=== PATIENT | female | born 1980 | race Caucasian/White ===

== ENCOUNTER 2019-05-31 15:32 | Emergency (ER) | payer SELFPAY ==
[2019-05-31 15:42] VITALS: PULSE 92; RESP 20; TEMP 36.6; O2SAT 99; BMI 32.5
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
--- NOTE | 2019-05-31 16:27 | XR_ITS ---
WS: [id number] WRIST LEFT TECHNIQUE: 3 views of the left wrist CLINICAL INFORMATION: left wrist pain COMPARISON: None. FINDINGS: Normal radiocarpal joint. Scaphoid is normal in appearance. No evidence of radiocarpal dislocation. D istal radius and ulna are normal in appearance. XR/XR wrist LT min 3V* [id number] IMPRESSION: Normal left wrist.
[2019-05-31 17:39] LABS: C Reactive Protein 4.7 mg/L (0.0-4.9); Uric Acid 6.2 mg/dL (2.4-5.7)
[2019-05-31] MEDS: dexamethasone 10 mg/mL INJ IM (17:47)
[2019-05-31] MEDS: ketorolac 30 mg/mL INJ IM (17:48)
--- NOTE | 2019-05-31 17:52 | PC.NURSE ---
Patient presents to ED with swelling and pain to left arm since waking up this morning. Patient denies any injury, cause is unknown.
== END 2019-05-31 18:48 | disposition home or self-care (01) ==
PROVIDERS: Emergency Provider Physician Assistant; Family Provider Family Medicine; PCP Internal Medicine
DX: M19.032 Primary osteoarthritis, left wrist (principal); M10.432 Other secondary gout, left wrist; F17.210 Nicotine dependence, cigarettes, uncomplicated
CPT/HCPCS: 36415; 73110; 84550; 86140; 96372; 99281; J1100; J1885

== ENCOUNTER 2020-06-16 16:27 | Inpatient (IN) | payer SELFPAY ==
[2020-06-16 16:37] VITALS: BP 129/70; PULSE 97; RESP 18; TEMP 37; O2SAT 100; BMI 32.9
[2020-06-16] MEDS: OLANZapine 10 mg VIAL IM (17:34)
[2020-06-16 17:43] LABS: Basophils # 0.1 10^3/uL (0.0-0.1); Basophils % 0.3 %; Hematocrit 42.6 % (37.0-47.0); Hemoglobin 14.1 g/dL (11.5-15.3); Lymphocytes # 4.9 10^3/uL (0.8-4.8); Lymphocytes % 17.3 %; Mean Corpuscular HGB Conc 33.1 g/dL (30.0-36.0); Mean Corpuscular Hemoglobin 31.5 pg (28.0-34.0); Mean Corpuscular Volume 95.1 fL (81-99); Mean Platelet Volume 10.2 fL (7.4-10.4); Monocytes # 1.6 10^3/uL (0.2-0.9); Monocytes % 5.8 %; Neutrophils # 21.48 10^3/uL (1.8-7.7); Neutrophils % 76.1 %; Nucleated Red Blood Cells % 0 %; Platelet Count 399 10^3/cmm (130-400); Red Blood Count 4.48 10^6/uL (4.1-5.3); Red Cell Distribution Width 12.8 % (12.1-15.1); White Blood Count 28.3 10^3/uL (4.0-10.0)
--- NOTE | 2020-06-16 17:46 | XRR_ITS ---
PROCEDURE INFORMATION: Exam: XR Chest, 1 View Exam date and time: 06/16/2020 6:19 PM Age: 40 years old Clinical indication: Other: Leucocytosis TECHNIQUE: Imaging protocol: XR of the chest Views: 1 view. Total images: 1 COMPARISON: CR Chest 1 [place] [id number] 08/10/2018 7:36 PM FINDINGS: Lungs: Unremarkable. No consolidation. Pleural spaces: Unremarkable. No pleural effusion. No pneumothorax. Heart/Mediastinum: Unremarkable. No cardiomegaly. Bones/joints: Unremarkable. XR/XR chest 1V portable [id number] IMPRESSION: No acute findings.
[2020-06-16 18:06] LABS: HCG Qualitative Urine. Negative (Negative)
[2020-06-16 18:08] LABS: Alanine Aminotransferase 25 U/L (0-33); Albumin Level 4.5 g/dL (3.5-5.2); Alkaline Phosphatase 70 IU/L (35-105); Aspartate Amino Transferase 48 U/L (0-32); Blood Urea Nitrogen 28 mg/dL (6-20); Calcium 8.2 mg/dL (8.5-10.5); Carbon Dioxide 23 mmol/L (22-29); Chloride 94 mmol/L (98-107); Globulin 3.2 g/dL (1.3-4.6); Glomerular Filtration Rate 33.1 mL/min (90-130); Glucose 140 mg/dL (65-115); Osmolality Calculated 292 mOsm/kg (285-295); Sodium 137 mmol/L (136-145); Total Bilirubin 0.5 mg/dL (0.15-1.2); Total Protein 7.7 g/dL (6.6-8.7)
[2020-06-16 18:10] LABS: Acetaminophen < 5.0 ug/mL (10-30); Alcohol Level < 10 mg/dL (0-10); Salicylate < 0.3 mg/dL (3-10)
--- NOTE | 2020-06-16 18:31 | PC.NURSE ---
rounded on pt after med administration-no change in pt's erratic behavior. she continues to talk loudly to herself. ed physician notified.
--- NOTE | 2020-06-16 18:39 | PC.NURSE ---
pt given food and fluids. pt behavior is still erratic but she is more directable at this time. er physician notified.
[2020-06-16 19:36] LABS: Specific Gravity, Urine 1.025 (1.005-1.030); Urine Appearance Clear (CLEAR); Urine Color Yellow (Yellow); pH Urine 5 (5-7)
[2020-06-16 19:37] LABS: Add Urine Microscopic? YES; Bilirubin Urine 1+ (Negative); Blood Urine Neg (Negative); Glucose Urine UA Norm (Normal); Ketones Urine 1+ (Negative); Leukocyte Esterase Urine Negative (Negative); Nitrate Urine Negative (Negative); Protein Urine Trace (Negative); Urobilinogen Urine 4 mg/dL (Negative)
[2020-06-16 19:38] LABS: Amorphous Sediment Urine 1+ /hpf; Hyaline Casts Urine 0-4 /lpf
[2020-06-16 19:39] LABS: Add Urine Culture? Yes; Bacteria Urine 2+ /hpf; RBC Urine 0-4 /hpf (0-2); Squamous Epithelial Cell Urine 0-4 /hpf (0-5)
[2020-06-16 19:40] LABS: Amphetamines Screen Urine Positive (Negative); Barbiturates Screen Urine Negative (Negative); Benzodiazepines Screen Urine Negative (Negative); Cocaine Screen Urine Negative (Negative); Opiate Screen Urine Negative (Negative); PCP Screen Urine Negative (Negative); THC Screen Urine Positive (Negative)
[2020-06-16] MEDS: LORazepam 2 mg/mL INJ 1 mL IM (19:48)
--- NOTE | 2020-06-16 20:31 | PC.NURSE ---
Patient was acting Erratic toward PSA and staff, yelling at staff and incoherently down hallway with other patient within close proximity. Patient was trying to leave patient room while only donning a patient gown and exposing privates in hallway. Per ED physician order was placed for 100mg Ketamine IM injection.
[2020-06-16 22:00] VITALS: BP 130/72; PULSE 95; RESP 20; TEMP 37
--- NOTE | 2020-06-16 22:14 | PC.NURSE ---
Report called to Valery EDWARDS on NPU unit at 1631
[2020-06-16] MEDS: potassium chloride ER 20 mEq Tablet 40 MEQ PO (22:37)
[2020-06-16] MEDS: amoxicillin-clav 500-125 mg Tablet 1 TAB PO (22:37)
[2020-06-16 22:41] VITALS: BP 130/72; PULSE 95; RESP 20; O2SAT 94
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
--- NOTE | 2020-06-17 04:29 | PC.NURSE ---
UTI/low K+ Pt does have a UTI, antibiotics are in med cart. Pt potassium is 3.0. Pt received 40mEq po in the ED.
[2020-06-17 06:00] VITALS: RESP 17
[2020-06-17] MEDS: amoxicillin-clav 500-125 mg Tablet 1 TAB PO ×2 (10:45→17:24)
[2020-06-17] MEDS: fixodent 39 gm Tube 1 APPLIC DENTAL (11:16)
[2020-06-17] MEDS: nicotine 21 mg Patch 1 PATCH TRANSDERMA (11:21)
[2020-06-17 13:48] VITALS: BP 100/53; PULSE 73; RESP 18; TEMP 37
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
[2020-06-17 20:40] VITALS: BP 112/70; PULSE 67; RESP 18; TEMP 36.8; O2SAT 94
[2020-06-17] MEDS: acetaminophen 325 mg Tablet 650 MG PO (20:45)
[2020-06-17] MEDS: hyDROXYzine 25 mg Capsule 50 MG PO (20:45)
[2020-06-17] MEDS: trazodone 50 mg Tablet PO (20:45)
[2020-06-17] MEDS: nicotine 2 mg Gum BUCCAL (20:45)
--- NOTE | 2020-06-17 20:48 | PC.NURSE ---
nicotine patch removed
[2020-06-18 06:00] VITALS: BP 90/50; PULSE 77; RESP 16; TEMP 36.8; O2SAT 98; BMI 32.9
--- NOTE | 2020-06-18 06:16 | PC.NURSE ---
TRAZODONE/VISTERIL/ @ 2100 PT RECEIVED TRAZODONE 50MG PO, VISTERIL 50MG PO, TYLENOL 650MG PO GIVEN FOR INSOMNIA, ANXIETY, result sleep, reduction of anxiety, @2215..result, pt slept and experienced less anxiety, and reduction of pain to lesser degree.
[2020-06-18] MEDS: amoxicillin-clav 500-125 mg Tablet 1 TAB PO ×2 (09:20→17:14)
[2020-06-18] MEDS: cetylpyridinium Lozenge 1 EACH MUCOUS MEM (10:59)
--- NOTE | 2020-06-18 11:57 | P.PN_ITS ---
Subjective NPU Subjective: Interval history: Yessi and I had a fairly contentious conversation. She was very reluctant to acknowledge her methamphetamine use. She then tried to save visits it was forced upon her, then she changes her story to there was someone in town and she just used a little bit. She very much downplays the role of addiction in her circumstance and spent most of the time t alking about how bad her family is end of the answer is just getting further away from here versus addressing her mental health and addiction issues. She was resistant to discuss any medications. Mental Status Exam MSE Comments: This is an obese white female with hospital scrubs on with limited dress grooming and eye contact. No abnormal movements except for psychomotor retardation. Semicooperative with exam mild/moderate distress. Speech was mostly decreased rate and volume. Mood described as anxious but tired, affect annoyed. Thought process organized. Thought content: Patient denied suicidal or homicidal ideation, she endorsed paranoia and paranoia was noted, she denied any auditory or visual hallucinations. Attention and concentration were limited and memory was unreliable but none were formally tested. She is alert and oriented times 3. Insight and judgment are impaired and impulse control is impaired. Vitals/I&O/Wt Last Vital Signs Temp 98.3 F 06/18/20 06:00 Pulse 77 06/18/20 06:00 Resp 16 06/18/20 06:00 BP 90/50 06/18/20 06:00 Pulse Ox 98 06/18/20 06:00 Weight last 48 hrs Weight 81.647 kg Weight 81.647 kg Data NPU : 06/16/20 17:30 06/16/20 17:30 Micro: Microbiology 06/16/20 17:57 Urine Culture - Preliminary Urine,Clean Catch Gram Negative Rods Microbiology 06/16/20 17:57 Urine,Clean Catch Urine Culture - Preliminary Gram Negative Rods A&P Additional A&P Information (1) Methamphetamine abuse: (2) Cannabis abuse: (3) Substance or medication-induced psychotic disorder: (4) UTI (urinary tract infection): (5) Acute hypokalemia: (6) Leucocytosis: Additional A&P Information This is a 40-year-old white female with a long history of trauma and presents denying active addiction but with positive UDS and behavior consistent with psychosis likely substance induced who presents resistant to being hospitalized on a 96-hour hold. 1. Continue current medication. We will continue to offer medication to assist with her thought disorder. 2. Continue every 15 minute checks for safety. 3. Encourage individual, group and milieu therapies. 4. Encourage sober living treatment after discharge at the highest level of care to which she is willing to commit. Involuntary Hold Information 96 Hour Hold: 96 Hour Involuntary Admission: No Attestations NPU Medical Necessity Statement*: Inpatient hospitalization is medically necessary and the clinically appropriate intervention at this time. We will monitor medications and make changes as indicated. Patient will be in the hospital for over two midnights. Likely length of stay 2-4 days. Coding Level of Care Code Acute Material Handler Floorperson for Nicole Gilbert
[2020-06-18 13:53] VITALS: BP 143/86; PULSE 98; RESP 18; TEMP 36.9
[2020-06-18 19:52] VITALS: BP 107/59; PULSE 62; RESP 18; TEMP 36.4; O2SAT 91
[2020-06-18] MEDS: hyDROXYzine 25 mg Capsule 50 MG PO (20:16)
[2020-06-18] MEDS: trazodone 50 mg Tablet PO (20:17)
[2020-06-19 06:00] VITALS: BP 110/71; PULSE 65; RESP 15; TEMP 36.7; O2SAT 90
[2020-06-19] MEDS: amoxicillin-clav 500-125 mg Tablet 1 TAB PO ×2 (08:52→20:34)
--- NOTE | 2020-06-19 13:39 | PM.NPN ---
Subjective NPU Subjective: Interval history: Yessi continues to show slow improvement and near resolution of her psychosis. That is now been replaced with resentment for being in the hospital and little to no insight or responsibility related to her drug use and its impact on her being here. She continues to focus on her family, her mother, emergency rooms decisions and not at all on her own decisions. She continues to deny any desire to start any medication. Mental Status Exam MSE Comments: This is an obese white female with hospital scrubs on with limited dress grooming and eye contact. No abnormal movements except for psychomotor retardation. Semicooperative with exam mild distress. Speech was mostly decreased rate and volume. Mood described as fine, affect annoyed. Thought process organized. Thought content: Patient denied suicidal or homicidal ideation, she endorsed paranoia and paranoia was noted, she denied any auditory or visual hallucinations. Attention and concentration were intact and memory was more reliable but none were formally tested. She is alert and oriented times 3. Insight and judgment are limited and impulse control is impaired. Vitals/I&O/Wt Last Vital Signs Temp 98.0 F 06/19/20 06:00 Pulse 65 06/19/20 06:00 Resp 15 06/19/20 06:00 BP 110/71 06/19/20 06:00 Pulse Ox 90 06/19/20 06:00 Weight last 48 hrs Weight 81.647 kg Data NPU : 06/16/20 17:30 06/16/20 17:30 Micro: Microbiology 06/16/20 17:57 Urine Culture - Final Urine,Clean Catch Escherichia coli Microbiology 06/16/20 17:57 Urine,Clean Catch Urine Culture - Final Escherichia coli A&P Additional A&P Information (1) Methamphetamine abuse: (2) Cannabis abuse: (3) Substance or medication-induced psychotic disorder: (4) UTI (urinary tract infection): (5) Acute hypokalemia: (6) Leucocytosis: Additional A&P Information This is a 40-year-old white female with a long history of trauma and presents denying active addiction but with positive UDS and behavior consistent with psychosis likely substance induced who presents resistant to being hospitalized on a 96-hour hold. 1. Continue current medication. We will continue to offer medication to assist with her thought disorder. 2. Continue every 15 minute checks for safety. 3. Encourage individual, group and milieu therapies. 4. Encourage sober living treatment after discharge at the highest level of care to which she is willing to commit. Involuntary Hold Information 96 Hour Hold: 96 Hour Involuntary Admission: No Attestations NPU Medical Necessity Statement*: Inpatient hospitalization is medically necessary and the clinically appropriate intervention at this time. We will monitor medications and make changes as indicated. Likely length of stay 1-3 days. Coding Level of Care Code Acute Statistical Programmer Analyst for Nicole Gilbert
[2020-06-19 14:00] VITALS: BP 123/79; PULSE 66; RESP 18; TEMP 36.8; O2SAT 98
--- NOTE | 2020-06-19 17:13 | PC.RESP ---
Smoking Cessation information sent to patient.
[2020-06-19 20:37] VITALS: BP 67/49; PULSE 97; RESP 18; TEMP 36.9; O2SAT 98
--- NOTE | 2020-06-19 21:32 | PC.NURSE ---
PM assessment Pt denies AH/VH, DENIES PAIN, DENIES SI/HI. BP WAS LOW THIS EVENING 67/49, TAKEN MANUALLY 72/46. PT DID NOT EAT SNACK, CHANGED PT ROOM, AND PT WANTS TO REST.
[2020-06-20 06:00] VITALS: BP 120/73; PULSE 51; RESP 16; TEMP 36.6; O2SAT 91
[2020-06-20] MEDS: amoxicillin-clav 500-125 mg Tablet 1 TAB PO (09:03)
[2020-06-20 10:25] VITALS: BP 120/73; PULSE 51; RESP 16; TEMP 36.6; O2SAT 91
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
== END 2020-06-20 13:56 | disposition home or self-care (01) | DRG 897 ==
LOC: ER 16:47 → NP 21:40
PROVIDERS: Admitting Provider Psychiatry & Neurology Psychiatry; Emergency Provider Family Medicine; Visit Provider Psychiatry & Neurology Psychiatry
DX: F15.159 Other stimulant abuse with stimulant-induced psychotic disorder, unspecified (principal); N30.00 Acute cystitis without hematuria; R45.851 Suicidal ideations; F15.10 Other stimulant abuse, uncomplicated; F12.10 Cannabis abuse, uncomplicated; E87.6 Hypokalemia
CPT/HCPCS: 12345; 36415; 71045; 80053; 80306; 80307; 81001; 81025; 85025; 87077; 87086; 87186; 96372; 99284; 99292; J2060; J3490

== ENCOUNTER → 2021-04-17 15:03 | Outpatient (BNVA) | payer MEDICAID, SELFPAY | PROVIDERS: Visit Provider Obstetrics & Gynecology | DX: Z12.4 Encounter for screening for malignant neoplasm of cervix (principal); Z12.39 Encounter for other screening for malignant neoplasm of breast | CPT/HCPCS: 87624 ==

== ENCOUNTER → 2021-10-16 18:21 | Outpatient (BNVA) | payer MEDICAID, SELFPAY | PROVIDERS: Visit Provider Family Medicine Adult Medicine | DX: N39.0 Urinary tract infection, site not specified (principal); J40 Bronchitis, not specified as acute or chronic; J30.9 Allergic rhinitis, unspecified | CPT/HCPCS: 81000 ==

== ENCOUNTER → 2023-04-29 14:52 | Outpatient (BNVA) | payer MEDICAID, SELFPAY | PROVIDERS: Visit Provider Nurse Practitioner | DX: R39.9 Unspecified symptoms and signs involving the genitourinary system (principal); Z20.2 Contact with and (suspected) exposure to infections with a predominantly sexual mode of transmission; B37.31 Acute candidiasis of vulva and vagina | CPT/HCPCS: 81000; 87491; 87591 ==

== ENCOUNTER → 2023-05-19 15:31 | Outpatient (BNVA) | payer MEDICAID, SELFPAY | PROVIDERS: Visit Provider Registered Nurse Neonatal Intensive Care | DX: R50.9 Fever, unspecified (principal); J06.9 Acute upper respiratory infection, unspecified | CPT/HCPCS: 87400; 87426 ==

== ENCOUNTER → 2023-09-24 09:58 | Outpatient (BNVA) | payer SELFPAY | PROVIDERS: Visit Provider Registered Nurse Neonatal Intensive Care | DX: R39.9 Unspecified symptoms and signs involving the genitourinary system (principal); N39.0 Urinary tract infection, site not specified | CPT/HCPCS: 81000 ==